=== PATIENT | male | born 1960 | race Caucasian/White ===

== ENCOUNTER → 2019-02-26 | Outpatient (CLI) | payer OTHER ==
[~2019-02-26] MED LIST: AMLO5; ASPI81CH PO; CARDURA PO; FLAX; FLONASE SENSIM9.9 ML; Flonase 0.05% N16 GM; Glucosamine Ch1 EAC4 PO; Iron Supplemen325 MG PO; LOSHYD100 PO; NAPR220 PO; OMEP20ER PO; Pepto-Bismol262 M1 PO; SILDENAFIL20 MG PO; Simvastatin80 MG PO; TESTONE CI200 MG/1 M IM
== END | disposition home or self-care (01) ==
LOC: LAB SHORT 10:15 → LAB EV 10:15
DX: L72.3 Sebaceous cyst (principal)
CPT/HCPCS: 87070; 87075; 87077; 87147; 87186; 87205

== ENCOUNTER 2019-07-28 06:01 | Day surgery (SDC) | payer OTHER ==
[~2019-07-28] VITALS: Ht 180.3 cm; Wt 109.7 kg
[2019-07-28] MEDS ORDERED: IRBESARTAN-HCT1 EACH PO (06:45)
[2019-07-28] MEDS ORDERED: TAMS.4ER PO (06:48)
[2019-07-28] MEDS ORDERED: TADA10TA PO (06:49)
[2019-07-28] MEDS ORDERED: FLUC200 PO (06:50)
--- NOTE | 2019-07-28 07:35 | NUR ---
Ambulatory in Day Surgery History, Chart, Medications and Allergies reviewed before start of procedure.Patient confirms NPO status and agrees with scheduled surgery. Patient reports completing Chlorhexadine shower X2 prior to admission to hospital.Surgical site prepped with 2% Chlorhexidine cloth wipe. Patient States Post-Procedure ride home has been arranged.
--- NOTE | 2019-07-28 09:37 | NUR ---
PT TO STEP DOWN, AWAKE AND ALERT. CONVERSING WITH STAFF. NO C/O PAIN OR DISCOMFORT.
--- NOTE | 2019-07-28 09:57 | NUR ---
REVIEWED DISCHARGE INSTRUCTIONS WITH PATIENT AND - BOTH OF WHOM VERBALIZE UNDERSTANDING OF ALL INSTRUCTIONS GIVEN. DRSG TO RIGHT GROIN AREA CDI. PT DENIES PAIN. DRINKING PO FLUIDS AT THIS TIME.
--- NOTE | 2019-07-28 10:02 | NUR ---
PT STATES PAIN NOW 2-11/15. WORRIED ABOUT INCREASED ACTIVITY OF GOING HOME AND REQUESTS 1 NORCO. ADMINISTERED PER MD ORDERS TO PREVENT INCREASING PAIN.
--- NOTE | 2019-07-28 10:10 | NUR ---
PT TOLERATING PO INTAKE WITHOUT NAUSEA OR C/O. PLAN FOR DC
--- NOTE | 2019-07-28 10:22 | NUR ---
IV DC TIP INTACT. PT KRISTINA WELL. DC HOME VIA WC WITH TO DRIVE HIM.
== END 2019-07-28 22:41 | disposition home or self-care (01) ==
LOC: ORSCMMR 06:01 → ORD 07:30 → ORSCMMR 07:30
PROVIDERS: Surgery
PROC: 0YU50JZ Supplement Right Inguinal Region with Synthetic Substitute, Open Approach (ICD-10-PCS; principal; 2019-07-28 07:30)
DX: K40.90 Unilateral inguinal hernia, without obstruction or gangrene, not specified as recurrent (principal); I10 Essential (primary) hypertension; G47.33 Obstructive sleep apnea (adult) (pediatric); K21.9 Gastro-esophageal reflux disease without esophagitis; Z79.899 Other long term (current) drug therapy; Z79.82 Long term (current) use of aspirin
CPT/HCPCS: A9270-GY; C1781; J0690; J1100; J1885; J2370; J2405; J2704; J2710; J3010; J7120

== ENCOUNTER 2022-11-14 07:00 | Emergency (ER) | payer OTHER ==
[~2022-11-14] VITALS: Ht 180.3 cm; Wt 108.9 kg
[~2022-11-14 07:00] MED LIST changes: +FLUC200 PO; +IRBESARTAN-HCT1 EACH PO; +TADA10TA PO; +TAMS.4ER PO
[2022-11-14 08:25] LABS: Source, Urine Foley catheter
[2022-11-14 08:32] LABS: Appearance, Urine Clear (Clear); Blood, Urine 5+ (Neg); Color, Urine Amber (P-Yellow); Glucose Qualitative, Urine Neg (Neg); Ketones, Urine Neg (Neg); Leukocyte Esterase, Urine Neg (Neg); Nitrite, Urine Pos (Neg); Protein, Urine 3+ (Neg); Urobilinogen, Urine 1+ (Normal); pH, Urine 6.5 (5.0-8.0)
[2022-11-14 08:39] LABS: Bilirubin, Urine 1+ (Neg)
[2022-11-14 08:40] LABS: White Blood Cells, Urine Not Seen /hpf (0-5)
[2022-11-14 08:41] LABS: Squamous Epithelial Cells Rare /hpf (Few)
[2022-11-14 08:42] LABS: Bacteria Rare /hpf
[2022-11-14] MEDS ORDERED: CEPH500 PO (08:51)
== END 2022-11-14 09:25 | disposition home or self-care (01) ==
LOC: ER 07:00
PROVIDERS: Emergency Medicine
DX: N39.0 Urinary tract infection, site not specified (principal); R33.9 Retention of urine, unspecified; Z88.6 Allergy status to analgesic agent; Z79.899 Other long term (current) drug therapy; Z79.82 Long term (current) use of aspirin
CPT/HCPCS: 51702; 81001; 87086; 99283-25; A9270

== ENCOUNTER 2024-06-22 08:45 | Day surgery (SDC) | payer OTHER ==
[~2024-06-22] VITALS: Ht 175 cm; Wt 106.7 kg
[~2024-06-22 08:45] MED LIST changes: -AMLO5; +AMLO5 PO; +CEPH500 PO; +FLONASE SENSIM5.9 M1 INH; -FLONASE SENSIM9.9 ML; +LEVSOD25 PO; +LISI20 PO; +NS 500 ML IV SCH
[2024-06-22] MEDS ORDERED: NS 500 ML IV ONE (09:55)
[2024-06-22] MEDS ORDERED: HYDCHL12.5 PO (10:10)
[2024-06-22 10:30] VITALS: BP 151/79
--- NOTE | 2024-06-22 10:30 | NUR ---
History, Chart, Medications and Allergies reviewed before start of procedure. Patient up to Ambulate independently. Gait steady. Pre-Op teaching done. Pt verbalizes understanding. Patient confirms NPO status and agrees with scheduled surgery. Patient States Post-Procedure ride home has been arranged.
[2024-06-22] MEDS ORDERED: MULTI-VITAMIN1 EAC2 PO (10:37)
[2024-06-22] MEDS ORDERED: Aspir 8181 MG PO (10:37)
[2024-06-22] MEDS ORDERED: GLUCHON PO (10:38)
[2024-06-22] MEDS ORDERED: CO Q10200 MG PO (10:38)
[2024-06-22] MEDS ORDERED: [UNRECOGNIZED DRUG - CODE] PO (10:39)
[2024-06-22] MEDS ORDERED: FLAXSEED OIL1000 M1 PO (10:39)
[2024-06-22] MEDS ORDERED: propofoL 40 ML IV ONE (10:54)
--- NOTE | 2024-06-22 11:07 | NUR ---
06/22/24 1107 Luis F Alston History, Chart, Medications and Allergies reviewed before start of procedure.MONITOR INTACT WITH CONTINUOUS PULSE OXIMETRY, CONTINUOUS END TITAL CO2, AND INTERMITTENT BLOOD PRESSURE.3-LEAD EKG REVIEWED WITH PHYSICIAN PRIOR TO START OF PROCEDURE.O2 VIA POM INTACT THROUGHOUT SEDATION/PROCEDURE.See Anesthesia record.
[2024-06-22 11:39] VITALS: BP 113/71
[2024-06-22 11:45] VITALS: BP 126/72
--- NOTE | 2024-06-22 12:10 | NUR ---
1045- UP TO DRESS. GAIT STEADY. VSS. NO C/O. Discharge instructions reviewed with patient. Patient verbalizes understanding. Copy given to patient to take home.
== END 2024-06-22 11:51 | disposition home or self-care (01) ==
LOC: ORSCMMR 08:45 → ORD 10:00 → ORSCMMR 10:00
PROVIDERS: Internal Medicine Gastroenterology
PROC: 0DBK8ZX Excision of Ascending Colon, Via Natural or Artificial Opening Endoscopic, Diagnostic (ICD-10-PCS; principal; 2024-06-22 10:00)
PROC: 0DBN8ZX Excision of Sigmoid Colon, Via Natural or Artificial Opening Endoscopic, Diagnostic (ICD-10-PCS; principal; 2024-06-22 10:00)
PROC: 0DBL8ZX Excision of Transverse Colon, Via Natural or Artificial Opening Endoscopic, Diagnostic (ICD-10-PCS; principal; 2024-06-22 10:00)
DX: Z12.11 Encounter for screening for malignant neoplasm of colon (principal); D12.2 Benign neoplasm of ascending colon; D12.3 Benign neoplasm of transverse colon; D12.5 Benign neoplasm of sigmoid colon; K57.30 Diverticulosis of large intestine without perforation or abscess without bleeding; I10 Essential (primary) hypertension; G47.33 Obstructive sleep apnea (adult) (pediatric); Z79.899 Other long term (current) drug therapy; E66.9 Obesity, unspecified; Z68.34 Body mass index [BMI] 34.0-34.9, adult
CPT/HCPCS: 88305; J2704; J7040